=== PATIENT | male | born 1940 | race Caucasian/White ===

== ENCOUNTER 2023-09-11 12:30 | Inpatient (IN) ==
[2023-09-11 13:08] LABS: Basophils # (Auto) 0.01 K/mcL (0.00-0.30); Basophils % (Auto) 0.1 % (0.0-2.0); Eosinophils # (Auto) 0.07 K/mcL (0.00-0.70); Hematocrit 40.8 % (40.1-51.0); Hemoglobin 12.6 g/dL (13.7-17.5); Lymphocytes # (Auto) 1.21 K/mcL (1.50-4.80); Lymphocytes % (Auto) 16.6 % (15.5-49.0); Mean Cell Volume 89.3 fL (80.0-100.0); Mean Corpuscular HGB Conc 30.9 g/dL (31.0-36.0); Mean Platelet Volume 10.3 fL (8.8-12.5); Monocytes # (Auto) 0.51 K/mcL (0.10-0.90); Neutrophils % (Auto) 75.2 % (38.0-78.0); Platelet Count 180 K/mcL (140-440); RBC 4.57 M/mcL (4.63-6.08); Red Cell Distribution Width 14.4 % (11.5-14.5); WBC 7.3 K/mcL (4.5-11.0)
[2023-09-11 13:20] LABS: POC Pro Time 12.3 (11.9-14.5)
[2023-09-11 13:28] LABS: ALT/SGPT 7 U/L (<40); AST/SGOT 23 U/L (<40); Albumin 3.4 gm/dL (3.2-5.2); Alkaline Phosphatase 150 U/L (39-117); Bilirubin,Direct < 0.2 mg/dL (0-0.3); Bilirubin,Total 0.3 mg/dL (0.1-1.0)
[2023-09-11] MEDS: ASPIRIN 81 MG TAB.CHEW CHEWED ONE (14:10)
[2023-09-11 15:00] LABS: POC Calcium, Ionized 1.19 (1.16-1.32); POC Creatinine 0.9 (0.6-1.2); POC Potassium 4.4 (3.3-5.1)
[2023-09-11] MEDS ORDERED: POLYETHYLENE GLYCOL 3350 17 GM PACKET PO PRN (15:31)
[2023-09-11] MEDS ORDERED: HYDROMORPHONE 4 MG PO PRN ×2 (15:31→19:03)
[2023-09-11] MEDS ORDERED: IPRATROPIUM/ALBUTEROL 3 ML AMPUL.NEB NEB PRN (15:31)
[2023-09-11] MEDS ORDERED: POTASSIUM CHLORIDE 40 MEQ in DEXTROSE 5% IN WATER 500 ML IV PRN (15:31)
[2023-09-11] MEDS ORDERED: SENNOSIDES 1 TABLET PO PRN (15:31)
[2023-09-11] MEDS ORDERED: MAGNESIUM SULFATE 2 GM/50 ML BAG IV PRN (15:31)
[2023-09-11] MEDS ORDERED: POTASSIUM CHLORIDE 20 MEQ TABLET PO PRN (15:31)
[2023-09-11] MEDS ORDERED: ENALAPRILAT 1.25 MG/ML VIAL IV PRN (15:31)
[2023-09-11] MEDS ORDERED: ONDANSETRON 4 MG/2 ML VIAL IV PRN (15:31)
[2023-09-11] MEDS ORDERED: chlordiazePOXIDE 25 MG CAPSULE PO PRN (15:31)
[2023-09-11] MEDS ORDERED: LORazepam 2 MG/ML VIAL IV PRN (15:31)
[2023-09-11] MEDS ORDERED: ACETAMINOPHEN 325 MG TABLET PO PRN (15:31)
[2023-09-11] MEDS ORDERED: HYDROmorphone 2 MG TABLET PO PRN (15:45)
[2023-09-11] MEDS: 0.9 % SODIUM CHLORIDE 1,000 ML IV SCH (15:53)
[2023-09-11 16:25] LABS: HDL Cholesterol 50 mg/dL (>40); LDL Cholesterol,Calculated 104 mg/dL (<100); Non-HDL Cholesterol 124 mg/dL (<130); Triglycerides 105 mg/dL (<150)
[2023-09-11] MEDS: THIAMINE 100 MG TABLET PO SCH (16:56)
[2023-09-11] MEDS: HYDROmorphone 2 MG TABLET PO PRN (20:03)
[2023-09-11] MEDS: MELATONIN 3 MG TABLET PO SCH (20:16)
[2023-09-11] MEDS: TAMSULOSIN 0.4 MG CAPSULE PO SCH (20:16)
[2023-09-11] MEDS: ATORVASTATIN 40 MG TABLET PO SCH (20:16)
[2023-09-11] MEDS: buPROPion 150 MG TAB.SR.12H PO SCH (20:16)
[2023-09-11] MEDS: MELATONIN 3 MG TABLET PO ONE (21:02)
[2023-09-11] MEDS: DOCUSATE SODIUM 100 MG CAPSULE PO SCH (21:03)
[2023-09-11 22:56] LABS: Appearance,Urine Clear (Clear); Bilirubin,Urine Negative (Negative); Color,Urine Yellow; Culture Indicated,Urine No; Glucose,Urine (UA) Negative (Negative); Ketones,Urine Trace mg/dL (Negative); Leukocyte Esterase,Urine Negative /uL (Negative); Nitrate,Urine Negative (Negative); Protein,Urine Negative (Negative); Urine Blood Negative ery/mcL (Negative); Urobilinogen,Urine Normal
[2023-09-12 05:29] LABS: AST/SGOT 16 U/L (<40); Albumin 3.4 gm/dL (3.2-5.2); Albumin/Globulin Ratio 1.2 (1.0-2.3); Alkaline Phosphatase 146 U/L (39-117); Bilirubin,Direct < 0.2 mg/dL (0-0.3); Bilirubin,Total 0.4 mg/dL (0.1-1.0); Blood Urea Nitrogen 13 mg/dL (8-23); Calcium 8.9 mg/dL (8.6-10.4); Carbon Dioxide 23 mmol/L (22-30); Chloride 102 mmol/L (96-108); Globulin 2.9 gm/dL (2.2-3.7); Glomerular Filtration Rate 81; Glucose 89 mg/dL (70-105); Lactate Dehydrogenase 139 U/L (135-225); Triglycerides 127 mg/dL (<150); Uric Acid 3.6 mg/dL (2.5-8.0)
[2023-09-12] MEDS: POTASSIUM CHLORIDE 20 MEQ TABLET PO PRN (07:20)
[2023-09-12] MEDS: ASPIRIN 81 MG TAB.CHEW CHEWED SCH (09:03)
[2023-09-12] MEDS: MULTIVIT,THER IRON,CA,FA & MIN 1 TABLET PO SCH (09:03)
[2023-09-12] MEDS: FOLIC ACID 1 MG TABLET PO SCH (09:03)
[2023-09-12] MEDS: OMEPRAZOLE 20 MG CAPSULE PO SCH (09:03)
[2023-09-12] MEDS: ENOXAPARIN 40 MG/0.4 ML SYRINGE SQ SCH (09:03)
[2023-09-12] MEDS: DUTASTERIDE 0.5 MG CAPSULE PO SCH (09:03)
[2023-09-12] MEDS: hydrOXYzine 25 MG TABLET PO ONE (11:41)
[2023-09-12] MEDS: 0.9 % SODIUM CHLORIDE 10 ML SYRINGE IV SCH (20:15)
[2023-09-12] MEDS: LISINOPRIL 20 MG TABLET PO SCH (21:08)
[2023-09-13] MEDS: LISINOPRIL 20 MG TABLET ONE (00:34)
[2023-09-13] MEDS ORDERED: ENALAPRILAT 1.25 MG/ML VIAL IV PRN (07:48)
[2023-09-13] MEDS: CARVEDILOL 12.5 MG TABLET PO SCH (08:19)
[2023-09-13 15:20] VITALS: TEMP 97.2; O2SAT 98
== END 2023-09-13 15:10 | DRG 65 ==
LOC: ED 12:30 → ICU 15:26
PROVIDERS: ADMIT Internal Medicine; ATTEND Internal Medicine